=== PATIENT | male | born 1975 | race Caucasian/White ===

== ENCOUNTER 2019-01-20 21:05 | Emergency (ER) | payer OTHER ==
[~2019-01-20] VITALS: Ht 182.9 cm; Wt 68.0 kg
[2019-01-20 21:41] LABS: ABSOLUTE BASOPHILS 0.1 thou/uL (0.0-0.2); ABSOLUTE EOSINOPHILS 0.2 thou/uL (0.0-0.7); ABSOLUTE LYMPHOCYTES 2.2 thou/uL (0.8-5.3); BASOPHILS 0.5 %; EOSINOPHILS 1.4 %; HEMATOCRIT 42.6 % (42.0-52.0); HEMOGLOBIN 14.6 gm/dL (14.0-18.0); LYMPHOCYTES 21.1 %; MCH 30.8 pg (26.0-34.0); MCHC 34.3 g/dL (28.0-37.0); MCV 89.8 fL (80.0-100.0); MONOCYTES 10.1 %; MPV 7.5 fl. (7.2-11.1); NUCLEATED RBCS 0 /100WBC; PLATELET COUNT* 242 thou/uL (150-400); POLYS 66.9 %; RBC 4.74 mil/uL (4.50-6.00); RDW-CV 12.8 % (10.5-14.5); WBC 10.4 thou/uL (4.0-11.0)
[2019-01-20 21:51] LABS: ANION GAP 9 mmol/L (7-16); BUN 19 mg/dL (7-18); CALCIUM 9.5 mg/dL (8.5-10.1); CHLORIDE 105 mmol/L (98-107); CO2 30 mmol/L (21-32); CREATININE 1.2 mg/dL (0.6-1.3); GLUCOSE 97 mg/dL (70-99); POTASSIUM 3.4 mmol/L (3.5-5.1); SODIUM 144 mmol/L (136-145)
[2019-01-20 21:52] LABS: INR 1.1; PROTIME 11.1 Seconds (9.20-11.50)
[2019-01-20 22:02] LABS: ALKALINE PHOSPHATASE 48 U/L (46-116); LIPASE 154 U/L (73-393); NT-PRO BRAIN NAT PEPTIDE 8 pg/mL (<300); SGOT 23 U/L (15-37); SGPT 37 U/L (30-65); TOTAL PROTEIN 7.4 g/dL (6.4-8.2); TROPONIN-I LEVEL <0.06 ng/mL (<0.06)
[2019-01-21] MEDS ORDERED: PROZAC10 MG PO (00:39)
[2019-01-21 01:26] VITALS: BP 00/00
--- NOTE | 2019-01-21 11:34 | EKG ---
[place] [address] ELECTROCARDIOGRAM REPORT Name: ANDREIA QUIÑONES [id number] Admission: 01/20/19 Attend Phys: Discharge: 01/21/19 Date of : 71 Report #: [id number] THIS REPORT FOR: //name// [facility] ED Test Date: 2019-01-20 Test Time: 21:11:57 Pat Name: ANDREIA NURIA Department: Room: Gender: M [employer]: [place] : 1975 Requested By: Ellyn Mittal Order Number: [id number] MD: Asaf Cormier Measurements Intervals [place] Rate: 82 P: 78 NC: 148 QRS: 77 QRSD: 82 T: 75 QT: 351 QTc: 410 Interpretive Statements Sinus rhythm Biatrial enlargement No previous ECG available for comparison Electronically Signed On 01-21-2019 11:34:38 CDT by Asaf Cormier [email or web address] <ELECTRONICALLY SIGNED> By: Asaf Cormier MD, [facility] 01/21/19 1134 [id number] 10 Asaf Cormier MD, FACC /EPI
== END 2019-01-21 01:27 | disposition home or self-care (01) ==
LOC: M.ERS 21:05
PROVIDERS: Emergency Medicine
DX: R07.89 Other chest pain (principal)

== ENCOUNTER 2020-03-29 17:26 | Emergency (ER) | payer OTHER ==
[~2020-03-29] VITALS: Ht 188 cm; Wt 79.4 kg
[~2020-03-29 17:26] MED LIST: PROZAC10 MG PO
[2020-03-29] MEDS ORDERED: NORCO 5-325 TA1 EAC2 PO (19:44)
[2020-03-29] MEDS ORDERED: MEDROLDOSEPACK PO (19:44)
[2020-03-29] MEDS ORDERED: NAPROSYN500 MG PO (19:44)
[2020-03-29 20:08] VITALS: BP 135/93
== END 2020-03-29 20:08 | disposition home or self-care (01) ==
LOC: M.ERS 17:26
DX: S80.01XA Contusion of right knee, initial encounter (principal); M25.851 Other specified joint disorders, right hip; Z88.0 Allergy status to penicillin; X58.XXXA Exposure to other specified factors, initial encounter; Y93.89 Activity, other specified; Y92.89 Other specified places as the place of occurrence of the external cause; Y99.8 Other external cause status

== ENCOUNTER 2020-07-14 15:38 | Emergency (ER) | payer OTHER ==
[~2020-07-14] VITALS: Ht 188 cm; Wt 79.4 kg
[~2020-07-14 15:38] MED LIST changes: +MEDROLDOSEPACK PO; +NAPROSYN500 MG PO; +NORCO 5-325 TA1 EAC2 PO
[2020-07-14 17:45] LABS: INFLUENZA A ANTIGEN Negative (Negative); INFLUENZA B ANTIGEN Negative (Negative)
[2020-07-14 18:11] VITALS: BP 129/79
== END 2020-07-14 18:11 | disposition home or self-care (01) ==
LOC: M.ERS 15:38
PROVIDERS: Nurse Practitioner Psychiatric/Mental Health
DX: J06.9 Acute upper respiratory infection, unspecified (principal); Z20.828 Contact with and (suspected) exposure to other viral communicable diseases; Z88.8 Allergy status to other drugs, medicaments and biological substances

== ENCOUNTER 2021-06-29 18:13 | Emergency (ER) | payer OTHER ==
[~2021-06-29] VITALS: Ht 188 cm; Wt 100.2 kg
[2021-06-29] MEDS ORDERED: CEPHALEXIN500 MG PO (19:46)
[2021-06-29 19:55] VITALS: BP 126/79
[2021-06-29] MEDS ORDERED: NORCO5 PO (20:06)
== END 2021-06-29 19:56 | disposition home or self-care (01) ==
LOC: M.ERS 18:13
DX: S61.210A Laceration without foreign body of right index finger without damage to nail, initial encounter (principal); Z88.0 Allergy status to penicillin; W32.0XXA Accidental handgun discharge, initial encounter; Y93.89 Activity, other specified; Y92.89 Other specified places as the place of occurrence of the external cause; Y99.8 Other external cause status